=== PATIENT | male | born 1955 | race Hispanic/Latino ===

== ENCOUNTER 2018-01-29 15:15 | Emergency (ER) | payer BC ==
[2018-01-29] MEDS ORDERED: CLONIDINE HCL 0.1 MG TABLET ONE (16:59)
[2018-01-29] MEDS ORDERED: LABETALOL HCL 5 MG/ML 20ML VIAL IV ONE (17:56)
== END 2018-01-29 18:28 | disposition home or self-care (01) ==
LOC: EDH 15:15
DX: I10 Essential (primary) hypertension (principal); E11.9 Type 2 diabetes mellitus without complications; E78.5 Hyperlipidemia, unspecified; Z98.890 Other specified postprocedural states; Z79.84 Long term (current) use of oral hypoglycemic drugs; Z79.899 Other long term (current) drug therapy
CPT/HCPCS: 93005; 96374; 99284; J3490

== ENCOUNTER 2018-02-17 10:42 | Emergency (ER) | payer BC ==
[2018-02-17] MEDS ORDERED: LABETALOL HCL 5 MG/ML 20ML VIAL IV ONE (11:08)
[2018-02-17 11:25] LABS: BASOPHILS % (AUTO) 0.4 % (0.0-5.0); EOSINOPHILS % (AUTO) 1.8 % (0.0-8.0); HEMATOCRIT 35.1 % (42-54); LYMPHOCYTES % (AUTO) 28.5 % (21.0-51.0); MEAN CORPUSCULAR HEMOGLOBIN 30.2 pg (27.0-33.0); MEAN CORPUSCULAR HGB CONC 33.9 g/dL (32.0-36.0); MEAN CORPUSCULAR VOLUME 89.2 fL (79-99); MONOCYTES % (AUTO) 8.1 % (3.0-13.0); NEUTROPHILS % (AUTO) 61.2 % (40.0-77.0); PLATELET COUNT (AUTO) 153 K/uL (130-400); RED BLOOD CELL COUNT(AUTO) 3.93 MIL/uL (4.50-6.20); RED CELL DISTRIBUTION WIDTH 13.3 % (11.0-15.5); WHITE BLOOD COUNT (AUTO) 6.7 K/uL (4.8-10.8)
[2018-02-17 11:27] LABS: POTASSIUM 5.3 mmol/L (3.5-5.1)
[2018-02-17] MEDS ORDERED: HYDRALAZINE HCL 20 MG/ML VIAL ONE (11:37)
== END 2018-02-17 13:00 | disposition home or self-care (01) ==
LOC: EDH 10:42
DX: I10 Essential (primary) hypertension (principal); E11.9 Type 2 diabetes mellitus without complications; Z98.890 Other specified postprocedural states
CPT/HCPCS: 36415; 80048; 85025; 93005; 96374; 96375; 99285; J0360; J3490

== ENCOUNTER → 2022-01-02 | Outpatient (CLI) | payer BC, OTHER | END | disposition home or self-care (01) | LOC: RAH 12:40 | PROVIDERS: ATTEND Family Medicine | DX: I08.8 Other rheumatic multiple valve diseases (principal); I11.9 Hypertensive heart disease without heart failure; E11.9 Type 2 diabetes mellitus without complications | CPT/HCPCS: 93306 ==

== ENCOUNTER 2022-12-24 21:06 | Emergency (ER) | payer OTHER ==
[~2022-12-24] VITALS: Ht 167.6 cm; Wt 66.7 kg
[2022-12-24] MEDS: LIDOCAINE 5% TOPICAL PATCH TP ONE (21:50)
[2022-12-24] MEDS ORDERED: LIDOP TP (22:46)
[2022-12-24 23:06] VITALS: BP 131/92
== END 2022-12-24 23:06 | disposition home or self-care (01) ==
LOC: EDH 21:06
DX: S22.31XA Fracture of one rib, right side, initial encounter for closed fracture (principal); W01.198A Fall on same level from slipping, tripping and stumbling with subsequent striking against other object, initial encounter; Y93.H2 Activity, gardening and landscaping; Y92.89 Other specified places as the place of occurrence of the external cause; Y99.8 Other external cause status
CPT/HCPCS: 71100

== ENCOUNTER 2023-02-15 12:59 | Emergency (ER) | payer MEDICARE, OTHER ==
[~2023-02-15] VITALS: Ht 170.2 cm; Wt 66.7 kg
[~2023-02-15 12:59] MED LIST: LIDOP TP
[2023-02-15 13:24] LABS: BASOPHILS % (AUTO) 0.5 % (0.0-5.0); EOSINOPHILS % (AUTO) 3.7 % (0.0-8.0); LYMPHOCYTES % (AUTO) 16.2 % (21.0-51.0); MEAN CORPUSCULAR HEMOGLOBIN 30.1 pg (27.0-33.0); MEAN CORPUSCULAR HGB CONC 31.7 g/dL (32.0-36.0); MONOCYTES % (AUTO) 6.8 % (3.0-13.0); NEUTROPHILS % (AUTO) 72.4 % (40.0-77.0); PLATELET COUNT (AUTO) 168 K/uL (130-400); RED BLOOD CELL COUNT(AUTO) 2.19 MIL/uL (4.50-6.20); RED CELL DISTRIBUTION WIDTH 14.9 % (11.0-15.5); WHITE BLOOD COUNT (AUTO) 7.8 K/uL (4.8-10.8)
[2023-02-15 13:31] LABS: HEMATOCRIT 20.8 % (42-54)
[2023-02-15 13:44] LABS: ALBUMIN 3.5 g/dL (3.5-5.0); POTASSIUM 5.8 mmol/L (3.5-5.1); TOTAL PROTEIN, SERUM 7.2 g/dL (6.0-8.3)
[2023-02-15 13:46] LABS: CREATININE 9.5 mg/dL (0.5-1.5)
[2023-02-15] MEDS ORDERED: NA ZIRCON CYCLOSIL(LOKELMA 10GM) PO ONE (14:30)
[2023-02-15] MEDS ORDERED: ALBUTEROL 0.083% 2.5 MG/3 ML INH IH SCH (14:30)
[2023-02-15] MEDS ORDERED: INSULIN HUMULIN R 100 UNIT/ML 3ML IV ONE (14:30)
[2023-02-15] MEDS ORDERED: DEXTROSE 50%-WATER 25 GM/50 ML VIAL IV ONE (14:30)
[2023-02-15] MEDS ORDERED: DEXTROSE 50%-WATER 50 ML DISP.SYRIN IV ONE (14:31)
[2023-02-15 18:35] LABS: HEMATOCRIT 21.8 % (42-54)
[2023-02-15 18:44] LABS: POTASSIUM 5.3 mmol/L (3.5-5.1)
[2023-02-15 18:47] LABS: CREATININE 9.3 mg/dL (0.5-1.5)
[2023-02-15 19:15] VITALS: BP 146/54
== END 2023-02-15 19:40 | disposition left against medical advice (07) ==
LOC: EDH 12:59
DX: E11.22 Type 2 diabetes mellitus with diabetic chronic kidney disease (principal); I12.0 Hypertensive chronic kidney disease with stage 5 chronic kidney disease or end stage renal disease; N18.6 End stage renal disease; D64.9 Anemia, unspecified; Z99.2 Dependence on renal dialysis
CPT/HCPCS: 99285; 36430; 96374; 96375; 80053; 85025; 86850; 86900; 86901; 86923; 36415; 94640; 85018; 85014; 80048; J1815; P9016; J7070

== ENCOUNTER 2023-12-01 12:13 | Emergency (ER) | payer OTHER ==
[~2023-12-01] VITALS: Ht 170.2 cm; Wt 65.8 kg
[2023-12-01 12:47] VITALS: BP 125/80; PULSE 71; RESP 18; O2SAT 100
[2023-12-01 13:17] LABS: BASOPHILS # (AUTO) 0.02 K/uL (0.00-0.20); BASOPHILS % (AUTO) 0.3 % (0.0-5.0); EOSINOPHILS # (AUTO) 0.17 K/uL (0.00-0.70); EOSINOPHILS % (AUTO) 2.2 % (0.0-8.0); IMMATURE GRANULOCYTE ABSOLUTE 0.02 K/uL (0-1); LYMPHOCYTES # (AUTO) 0.6 K/uL (1.0-4.8); LYMPHOCYTES % (AUTO) 7.8 % (21.0-51.0); MEAN CORPUSCULAR HEMOGLOBIN 30.3 pg (27.0-33.0); MEAN CORPUSCULAR HGB CONC 33.8 g/dL (32.0-36.0); MEAN CORPUSCULAR VOLUME 89.6 fL (79-99); MONOCYTES # (AUTO) 0.8 K/uL (0.1-1.0); MONOCYTES % (AUTO) 9.9 % (3.0-13.0); NEUTROPHILS % (AUTO) 79.5 % (40.0-77.0); PLATELET COUNT (AUTO) 179 K/uL (130-400); RED BLOOD CELL COUNT(AUTO) 2.31 MIL/uL (4.50-6.20); RED CELL DISTRIBUTION WIDTH 15.8 % (11.0-15.5); WHITE BLOOD COUNT (AUTO) 7.6 K/uL (4.8-10.8)
[2023-12-01 13:20] LABS: HEMATOCRIT 20.7 % (42-54)
[2023-12-01 13:35] LABS: ALBUMIN 2.8 g/dL (3.5-5.0); BILIRUBIN,TOTAL 0.5 mg/dL (0.2-1.0)
[2023-12-01 13:36] LABS: TOTAL PROTEIN, SERUM 6.3 g/dL (6.0-8.3)
[2023-12-01 13:39] LABS: CREATININE 11.1 mg/dL (0.5-1.5)
[2023-12-01 13:40] LABS: POTASSIUM 6.3 mmol/L (3.5-5.1)
[2023-12-01] MEDS ORDERED: KAYEXALATE 15GM/60ML ONE (13:55)
[2023-12-01] MEDS ORDERED: KAYEXALATE 15GM/60ML PO ONE (14:00)
[2023-12-01] MEDS ORDERED: CLIN-141 PO (14:03)
== END 2023-12-01 14:10 | disposition left against medical advice (07) ==
LOC: EDH 12:13
DX: S90.812A Abrasion, left foot, initial encounter (principal); I12.0 Hypertensive chronic kidney disease with stage 5 chronic kidney disease or end stage renal disease; E11.22 Type 2 diabetes mellitus with diabetic chronic kidney disease; N18.6 End stage renal disease; E87.5 Hyperkalemia; Z79.899 Other long term (current) drug therapy; Z90.89 Acquired absence of other organs; Z98.890 Other specified postprocedural states; X58.XXXA Exposure to other specified factors, initial encounter; Y93.89 Activity, other specified; Y92.89 Other specified places as the place of occurrence of the external cause; Y99.8 Other external cause status
CPT/HCPCS: 36415; 73630; 80053; 83605; 85025; 87040